=== PATIENT | male | born 1975 | race Hispanic/Latino ===

== ENCOUNTER 2020-12-28 13:04 | Emergency (ER) | payer SELFPAY ==
[~2020-12-28] VITALS: Ht 170.2 cm; Wt 108.9 kg
[2020-12-28] MEDS ORDERED: DEXAMETHASONE SOD PHOS 10 MG/1 ML VIAL IV STA (13:11)
[2020-12-28] MEDS ORDERED: PIPER-TAZ 3.375 GM 50 ML IV STA (13:11)
[2020-12-28] MEDS ORDERED: PIPERACILLIN/TAZOBAC 3.375 GM VIAL ONE (13:26)
[2020-12-28] MEDS ORDERED: SODIUM CHLORIDE 0.9% 100 ML ONE (13:27)
[2020-12-28] MEDS ORDERED: ZINC SULFATE 220 MG CAP ONE (13:28)
[2020-12-28] MEDS ORDERED: CHOLECALCIFEROL 400 UNIT TAB ONE (13:28)
[2020-12-28] MEDS ORDERED: CYANOCOBALAMIN 1,000 MCG TAB ONE (13:28)
[2020-12-28] MEDS ORDERED: ASCORBIC ACID 500 MG TAB ONE (13:28)
[2020-12-28 13:34] LABS: BASOPHILS % 0.4 % (0.0-1.0); HEMATOCRIT 53.8 % (38.2-49.6); HEMOGLOBIN 17.8 g/dL (14.0-18.0); LYMPHOCYTES % 12.5 % (18.0-39.1); MEAN CORPUSCULAR HEMOGLOBIN 30.3 pg (28-32); MEAN CORPUSCULAR HGB CONC 33.1 g/dL (31-35); MEAN CORPUSCULAR VOLUME 91.5 fL (81-99); MONOCYTES # (AUTO) 0.4 (0.2-0.8); NEUTROPHILS # (AUTO) 6.7 (2.1-6.9); NEUTROPHILS % 81.4 % (38.7-80.0); PLATELET COUNT 257 x10e3/uL (140-360); RED BLOOD COUNT 5.88 x10e6/uL (4.3-5.7); RED CELL DISTRIBUTION WIDTH 14.9 % (11.7-14.4)
[2020-12-28] MEDS ORDERED: CHOLECALCIFEROL 1,000 UNIT TAB PO SCH (14:00)
[2020-12-28] MEDS ORDERED: ASCORBIC ACID 500 MG TAB PO SCH (14:00)
[2020-12-28] MEDS ORDERED: ZINC SULFATE 220 MG CAP PO SCH (14:00)
[2020-12-28 14:01] LABS: B-TYPE NATRIURETIC PEPTIDE2 < 10.0 pg/mL (0-100)
[2020-12-28 14:03] LABS: ALANINE AMINOTRANSFERASE 170 IU/L (0-55); ALBUMIN 2.7 g/dL (3.5-5.0); ALBUMIN/GLOBULIN RATIO 0.5 (0.8-2.0); ALKALINE PHOSPHATASE 103 IU/L (40-150); ANION GAP 14.1 mmol/L (8-16); BLOOD UREA NITROGEN 26 mg/dL (7-26); BUN/CREATININE RATIO 23 (6-25); CALCIUM 8.2 mg/dL (8.4-10.2); CARBON DIOXIDE 28 mmol/L (22-29); CHLORIDE 103 mmol/L (98-107); CREATINE KINASE 587 IU/L (30-200); CREATININE, SERUM 1.14 mg/dL (0.72-1.25); EST GLOMERULAR FILTRATION RATE > 60 ML/MIN (60-); GLUCOSE 149 mg/dL (74-118); POTASSIUM 4.1 mmol/L (3.5-5.1); SODIUM 141 mmol/L (136-145)
[2020-12-28 16:55] VITALS: BP 124/71
[2020-12-29] MEDS ORDERED: RIBOFLAVIN 100 MG TAB PO SCH (09:00)
== END 2020-12-28 20:30 | disposition other institution (70) ==
LOC: ER 13:11
DX: U07.1 COVID-19 (principal); R09.02 Hypoxemia; E78.5 Hyperlipidemia, unspecified; M79.10 Myalgia, unspecified site; R53.83 Other fatigue; E66.01 Morbid (severe) obesity due to excess calories
CPT/HCPCS: 36415; 71045; 80053; 82550; 82553; 83605; 83880; 84484; 85025; 87040; 93005; 99284; J1100; J2543; J7050; U0002